=== PATIENT | female | born 1995 | race American Indian/Alaskan Native ===

== ENCOUNTER 2017-01-13 15:18 | Emergency (ER) | payer OTHER ==
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
[2017-01-13 16:27] LABS: Basophils % (Auto) 0.2 % (0.0-1.8); Hematocrit 36.8 % (30.3-42.9); Mean Corpuscular HGB Conc 33 % (30-34); Mean Corpuscular Hemoglobin 28 pg (28-32); Mean Corpuscular Volume 86 fl (79-97); Platelet Count 239 K/mm3 (140-440); Red Blood Count 4.27 M/mm3 (3.65-5.03); Red Cell Distribution Width 14.5 % (13.2-15.2); White Blood Count 16.6 K/mm3 (4.5-11.0)
[2017-01-13] MEDS ORDERED: ATIVAN ONE (16:37)
[2017-01-13 16:42] LABS: Anion Gap 19 mmol/L; Blood Urea Nitrogen 8 mg/dL (7-17); Calcium 9.3 mg/dL (8.4-10.2); Carbon Dioxide 22 mmol/L (22-30); Chloride 98.3 mmol/L (98-107); Glucose 94 mg/dL (65-100); Potassium 3.7 mmol/L (3.6-5.0); Sodium 136 mmol/L (137-145)
[2017-01-13] MEDS ORDERED: BENADRYL ONE (16:42)
[2017-01-13] MEDS ORDERED: HALDOL ONE (16:42)
[2017-01-13] MEDS ORDERED: ATIVAN IV ONE (16:49)
[2017-01-13] MEDS ORDERED: BENADRYL IV ONE (16:49)
[2017-01-13] MEDS ORDERED: HALDOL IV ONE (16:50)
[2017-01-13] MEDS ORDERED: NACL 0.9% 1000 ML 1,000 ML IV ONE (16:51)
[2017-01-13] MEDS ORDERED: BOOSTRIX IM ONE (16:53)
[2017-01-13 16:56] LABS: Urine Drugs of Abuse Note Disclamer
[2017-01-13 17:09] LABS: Bacteria,Urine 1+ /HPF (Negative); Bilirubin,Urine NEG (Negative); Blood,Urine NEG (Negative); Ketones,Urine 20 mg/dL (Negative); Leukocyte Esterase,Urine TR (Negative); Mucus,Urine FEW /HPF; Nitrite,Urine NEG (Negative); Protein,Urine <15 mg/dL mg/dL (Negative); Urobilinogen,Urine < 2.0 mg/dL (<2.0)
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
--- NOTE | 2017-01-13 18:00 | Cat Scan Report ---
FINAL REPORT PROCEDURE: CT HEAD/BRAIN WO CON TECHNIQUE: Computerized tomography of the head was performed without contrast material. HISTORY: Headache. COMPARISON: No prior studies are available for comparison. FINDINGS: Skull and scalp: Normal. Paranasal sinuses: Normal. Ventricles and subarachnoid spaces: Normal. Cerebrum: No evidence of hemorrhage, acute infarction or mass. Subtle high attenuation about the tentorium. Cerebellum and brainstem: No evidence of hemorrhage, acute infarction or mass. Vasculature: Normal. Comments: None. IMPRESSION: No CT evidence of acute intracranial pathology. Subtle high attenuation about the tentorium is felt to be normal and related to plane of imaging rather than process such is subtle hemorrhage. Consider short-term follow-up CT scan of the brain or MRI for further characterization if there is continued clinical concern and patient has no contraindication to MRI.
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
[2017-01-13 18:21] LABS: Creatine Kinase MB 2.3 ng/mL (0.0-4.0)
[2017-01-13 18:22] LABS: Creatine Kinase 251 units/L (30-135); Magnesium 1.9 mg/dL (1.7-2.3)
[2017-01-13 18:28] LABS: INR 1.15 (0.87-1.13)
[2017-01-13 19:03] LABS: Albumin 4.5 g/dL (3.9-5); Albumin/Globulin Ratio 1.4 %; Bilirubin,Direct 0.3 mg/dL (0-0.2); Bilirubin,Indirect 1.2 mg/dL; Bilirubin,Total 1.5 mg/dL (0.1-1.2); Total Protein 7.7 g/dL (6.3-8.2)
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
[2017-01-14] MEDS ORDERED: GEODON IM PRN (00:31)
[2017-01-14] MEDS ORDERED: TYLENOL PO PRN (08:37)
[2017-01-14] MEDS ORDERED: MOTRIN PO PRN (08:38)
[2017-01-14] MEDS: GEODON PO SCH ×2 (09:45→22:46)
[2017-01-14] MEDS: ATIVAN PO SCH ×2 (09:45→22:45)
--- NOTE | 2017-01-14 10:04 | XRay Report ---
AP CHEST: HISTORY: Difficulty in breathing AP view of the chest demonstrates a normal mediastinal and cardiac contour with clear lungs and normal bony and soft tissue structures. IMPRESSION: Unremarkable AP chest.
--- NOTE | 2017-01-14 10:57 | Emergency Department Report ---
Anisa Doc - Documentation Documentation: Discussed this patient's CT with Dr. Michel the radiologist. He reviewed the CT and states there is no evidence of a hemorrhage and no need to repeat CT or an MRI. He feels this is a normal CT scan.
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
--- NOTE | 2017-01-14 16:50 | Cat Scan Report ---
Cranial CT without contrast. History: Altered mental status. Findings: Comparison is made to yesterday's study. The brain parenchyma is normal. The tentorium is normal. There is no evidence of hemorrhage or infarct. The ventricles are normal in size and contour. There are no extra-axial collections or masses. The calvarium is intact. Impression: Normal study.
[2017-01-15] MEDS: ATIVAN PO SCH (10:29)
[2017-01-15] MEDS: GEODON PO SCH (10:29)
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
[2017-01-16] MEDS: GEODON PO SCH (00:01)
[2017-01-16] MEDS: ATIVAN PO SCH ×2 (10:31)
[2017-01-16 12:22] VITALS: BP 128/72
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
== END 2017-01-16 12:40 ==
LOC: ED 15:18 → EEVIPCON 15:18 → ED 01-16 12:40
DX: S00.81XA Abrasion of other part of head, initial encounter (principal); F29 Unspecified psychosis not due to a substance or known physiological condition; F17.200 Nicotine dependence, unspecified, uncomplicated; R79.1 Abnormal coagulation profile; F12.10 Cannabis abuse, uncomplicated; Y93.89 Activity, other specified; Y92.89 Other specified places as the place of occurrence of the external cause; Y99.8 Other external cause status
CPT/HCPCS: 36415; 70450; 70486; 71010; 72125; 80048; 80074; 80307; 81001; 81025; 82550; 82553; 83735; 84439; 84443; 84484; 85025; 85610; 85730; 90471; 90715; 93005; 93010; 96361; 96374; 96375; 99285; G0480; J1200; J1630; J2060; J7030; 80320

== ENCOUNTER 2019-12-02 12:14 | Emergency (ER) | payer MEDICAID ==
[2019-12-02 12:35] VITALS: BP 132/78
== END 2019-12-02 13:00 | disposition left against medical advice (07) ==
LOC: ED 12:14
DX: Z76.0 Encounter for issue of repeat prescription (principal); Z53.21 Procedure and treatment not carried out due to patient leaving prior to being seen by health care provider

== ENCOUNTER 2019-12-03 17:23 | Emergency (ER) | payer MEDICAID ==
[2019-12-03 17:30] VITALS: BP 109/67
--- NOTE | 2019-12-03 17:32 | Event Note ---
ED Screening Note Date of service: 12/03/19 Time: 17:29 ED Screening Note: c/o anger and hallucinations x weeks off schizophrenia meds x 2 months This initial assessment/diagnostic orders/clinical plan/treatment(s) is/are subject to change based on patients health status, clinical progression and re- assessment by fellow clinical providers in the ED. Further treatment and workup at subsequent clinical providers discretion. Patient/guardian urged not to elope from the ED as their condition may be serious if not clinically assessed and managed. Initial orders include: labs
[2019-12-03 18:46] LABS: Basophils % (Auto) 0.7 % (0.0-1.8); Eosinophils # (Auto) 0.2 K/mm3 (0.0-0.4); Eosinophils % (Auto) 2.9 % (0.0-4.3); Hematocrit 40.2 % (30.3-42.9); Hemoglobin 13.2 gm/dl (10.1-14.3); Lymphocytes # (Auto) 2.7 K/mm3 (1.2-5.4); Lymphocytes % (Auto) 42.5 % (13.4-35.0); Mean Corpuscular HGB Conc 33 % (30-34); Mean Corpuscular Volume 88 fl (79-97); Monocytes # (Auto) 0.4 K/mm3 (0.0-0.8); Monocytes % (Auto) 6.8 % (0.0-7.3); Platelet Count 236 K/mm3 (140-440); Red Blood Count 4.59 M/mm3 (3.65-5.03); Red Cell Distribution Width 13.9 % (13.2-15.2)
[2019-12-03 19:05] LABS: BUN/Creatinine Ratio 18; Blood Urea Nitrogen 11 mg/dL (7-17); Calcium 9.5 mg/dL (8.4-10.2); Hemolysis Index 40
== END 2019-12-03 20:00 | disposition left against medical advice (07) ==
LOC: ED 17:23
DX: F20.9 Schizophrenia, unspecified (principal); Z53.21 Procedure and treatment not carried out due to patient leaving prior to being seen by health care provider
CPT/HCPCS: 36415; 80048; 80320; 85025; G0480

== ENCOUNTER 2019-12-19 15:08 | Emergency (ER) | payer MEDICAID | END 2019-12-19 15:40 | disposition left against medical advice (07) | LOC: ED 15:08 | DX: F20.9 Schizophrenia, unspecified (principal); Z76.0 Encounter for issue of repeat prescription; Z53.21 Procedure and treatment not carried out due to patient leaving prior to being seen by health care provider ==

== ENCOUNTER 2019-12-24 15:03 | Emergency (ER) | payer MEDICAID ==
[2019-12-24 16:32] VITALS: BP 113/73
--- NOTE | 2019-12-24 16:35 | Event Note ---
ED Screening Note Date of service: 12/24/19 Time: 16:35 ED Screening Note: 24 yo F, hx of schizophrenia, presents to the ED stating "I'm trying to become an entity." Pt denies pain. Denies SI, HI, auditory hallucinations. Denies alcohol and drug use. This initial assessment/diagnostic orders/clinical plan/treatment(s) is/are subject to change based on patients health status, clinical progression and re- assessment by fellow clinical providers in the ED. Further treatment and workup at subsequent clinical providers discretion. Patient/guardian urged not to elope from the ED as their condition may be serious if not clinically assessed and managed. Initial orders include: labs mental health evaluation
[2019-12-24 17:14] LABS: Basophils % (Auto) 0.6 % (0.0-1.8); Eosinophils # (Auto) 0.3 K/mm3 (0.0-0.4); Eosinophils % (Auto) 3.7 % (0.0-4.3); Hematocrit 38.1 % (30.3-42.9); Hemoglobin 12.6 gm/dl (10.1-14.3); Lymphocytes # (Auto) 2.6 K/mm3 (1.2-5.4); Lymphocytes % (Auto) 38.5 % (13.4-35.0); Mean Corpuscular HGB Conc 33 % (30-34); Mean Corpuscular Volume 88 fl (79-97); Monocytes # (Auto) 0.5 K/mm3 (0.0-0.8); Monocytes % (Auto) 7.5 % (0.0-7.3); Platelet Count 215 K/mm3 (140-440); Red Blood Count 4.33 M/mm3 (3.65-5.03); Red Cell Distribution Width 13.9 % (13.2-15.2)
[2019-12-24 17:28] LABS: BUN/Creatinine Ratio 15; Blood Urea Nitrogen 9 mg/dL (7-17); Calcium 9.6 mg/dL (8.4-10.2); Hemolysis Index 5
== END 2019-12-24 20:08 | disposition left against medical advice (07) ==
LOC: ED 15:03
DX: F20.9 Schizophrenia, unspecified (principal); Z53.21 Procedure and treatment not carried out due to patient leaving prior to being seen by health care provider
CPT/HCPCS: 36415; 80048; 80320; 85025; G0480

== ENCOUNTER 2020-05-18 11:23 | Emergency (ER) | payer MEDICAID | END 2020-05-18 14:08 | disposition left against medical advice (07) | LOC: ED 11:23 | DX: Z53.21 Procedure and treatment not carried out due to patient leaving prior to being seen by health care provider (principal) ==

== ENCOUNTER 2020-10-25 06:44 | Emergency (ER) | payer MEDICAID ==
[2020-10-25 07:30] VITALS: BP 137/92
== END 2020-10-25 07:30 | disposition left against medical advice (07) ==
LOC: ED 06:44
DX: Z53.21 Procedure and treatment not carried out due to patient leaving prior to being seen by health care provider (principal)